=== PATIENT | male | born 1965 | race Caucasian/White ===

== ENCOUNTER 2018-08-30 15:48 | Emergency (ER) | payer OTHER ==
--- NOTE | 2018-08-30 17:35 | ER Document Report ---
ED Medical Screen (RME) - General Chief Complaint: Back Pain Stated Complaint: SIDE PAIN Time Seen by Provider: 08/30/18 17:33 Mode of Arrival: Ambulatory Information source: Patient Notes: 53-year-old male presented to ED for complaint of bilateral abdomen and back pain. He states it is been progressively getting worse over the last couple weeks worse today than it has been. States he has had diarrhea for 2 days and nausea today. He states he has had diverticulitis a couple years ago and this feels similar to that. He states he has a history of knee surgery for ligament repair he also had a colonoscopy with polyps removed. He is alert oriented respirations regular and unlabored speaking in full sentences walks with a even steady gait. 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 Abdomen is soft but tender to palpation bilaterally vital signs are stable. I have greeted and performed a rapid initial assessment of this patient. A comprehensive ED assessment and evaluation of the patient, analysis of test results and completion of medical decision making process will be conducted by an additional ED providers. TRAVEL OUTSIDE OF THE [place] IN LAST 30 DAYS: No - Related Data Allergies/Adverse Reactions: No Known Allergies Allergy (Unverified 08/30/18 15:51) Physical Exam - Vital signs Vitals: Temp Pulse Resp BP Pulse Ox 98.7 F 80 20 155/84 H 100 08/30/18 16:05 08/30/18 16:05 08/30/18 16:05 08/30/18 16:05 08/30/18 16:05 Course - Vital Signs Vital signs: Temp Pulse Resp BP Pulse Ox 98.7 F 80 20 155/84 H 100 08/30/18 16:05 08/30/18 16:05 08/30/18 16:05 08/30/18 16:05 08/30/18 16:05
[2018-08-30] MEDS ORDERED: ONDANSETRON HCL INJ/PF 4 MG/2 ML SDV IV ONE (17:36)
[2018-08-30] MEDS ORDERED: KETOROLAC TROMETHAMINE INJ/PF 30 MG/1 ML SDV IV ONE (17:36)
[2018-08-30 18:12] LABS: ABSOLUTE BASOPHILS # (AUTO) 0.1 10^3/uL (0.0-0.2); ABSOLUTE EOSINOPHILS # (AUTO) 0.2 10^3/uL (0.0-0.6); ABSOLUTE LYMPHOCYTES (AUTO) 2.1 10^3/uL (0.5-4.7); ABSOLUTE MONOCYTES (AUTO) 0.8 10^3/uL (0.1-1.4); ABSOLUTE NEUT (AUTO) 5.8 10^3/uL (1.7-8.2); BASOPHILS % (AUTO) 0.9 % (0-2); EOSINOPHILS % (AUTO) 1.8 % (0-6); HEMATOCRIT 46.1 % (37.9-51.0); HEMOGLOBIN 15.5 g/dL (13.5-17.0); LYMPHOCYTES % (AUTO) 23.4 % (13-45); MEAN CORPUSCULAR HEMOGLOBIN 28.6 pg (27.0-33.4); MEAN CORPUSCULAR HGB CONC 33.6 g/dL (32.0-36.0); MEAN CORPUSCULAR VOLUME 85 fl (80-97); MONOCYTES % (AUTO) 8.8 % (3-13); PLATELET COUNT 237 10^3/uL (150-450); RED BLOOD COUNT 5.43 10^6/uL (4.35-5.55); RED CELL DISTRIBUTION WIDTH 13.5 % (11.5-14.0); SEGMENTED NEUTROPHILS % (AUTO) 65.1 % (42-78); TOTAL CELLS COUNTED % (AUTO) 100 %; WHITE BLOOD COUNT 8.9 10^3/uL (4.0-10.5)
[2018-08-30 18:16] LABS: APPEARANCE,URINE CLEAR; BILIRUBIN,URINE NEGATIVE (NEGATIVE); COLOR,URINE YELLOW; GLUCOSE, URINE NEGATIVE (NEGATIVE); KETONES,URINE NEGATIVE (NEGATIVE); LEUKOCYTE ESTERASE,URINE NEGATIVE (NEGATIVE); NITRITE,URINE NEGATIVE (NEGATIVE); PROTEIN,URINE 100 mg/dL (NEGATIVE); URINE SPECIFIC GRAVITY 1.025; UROBILINOGEN,URINE NEGATIVE mg/dL (<2.0)
[2018-08-30 18:23] LABS: ALANINE AMINOTRANSFERASE 30 U/L (21-72); ALBUMIN 4.8 g/dL (3.5-5.0); ALKALINE PHOSPHATASE 57 U/L (38-126); ANION GAP 9 (5-19); ASPARTATE AMINO TRANSFERASE 46 U/L (17-59); BILIRUBIN,DIRECT 0.4 mg/dL (0.0-0.4); BILIRUBIN,TOTAL 0.7 mg/dL (0.2-1.3); BLOOD UREA NITROGEN 27 mg/dL (7-20); CALCIUM 9.7 mg/dL (8.4-10.2); CARBON DIOXIDE 24 mmol/L (22-30); CHLORIDE 112 mmol/L (98-107); GLUCOSE 78 mg/dL (75-110); POTASSIUM 5.4 mmol/L (3.6-5.0); SODIUM 145.1 mmol/L (137-145); TOTAL PROTEIN 8.2 g/dL (6.3-8.2)
--- NOTE | 2018-08-30 19:24 | ER Document Report ---
ED GI/ - General Chief Complaint: Back Pain Stated Complaint: SIDE PAIN Time Seen by Provider: 08/30/18 19:24 Mode of Arrival: Ambulatory Information source: Patient Notes: HISTORY OF PRESENT ILLNESS: Patient is a 53-year-old male with a past medical history of diverticulosis who presents with 3 weeks of bilateral lower abdominal pain. Location: Both lower flanks and lower quadrants Onset: Slowly 3 weeks ago Alleviation: None Provocation: Eating, movement Quality: Aching Radiation: "Around to the back" Severity: Moderate Timing: Constant History of abdominal surgery: No Associated symptoms: Nausea without vomiting, loose stools but no diarrhea, no hematemesis or hematochezia, no melena, no injuries to his knowledge Last bowel movement: Earlier and "looser than normal" REVIEW OF SYSTEMS: CONSTITUTIONAL : Denies fever or chills, no sweats. Denies recent illness. EENT: Denies eye, ear, throat, or mouth pain or symptoms. Denies nasal or sinus congestion. CARDIOVASCULAR: Denies chest pain. Denies swelling of the legs. RESPIRATORY: Denies cough, cold, or chest congestion. Denies shortness of breath or difficulty breathing. Denies wheezing. GASTROINTESTINAL: Positive for abdominal pain. Positive for nausea but no vomiting or diarrhea. Denies constipation. GENITOURINARY: Denies difficulty urinating, painful urination, burning, frequency, or blood in urine. FEMALE GENITOURINARY: Denies vaginal bleeding, abnormal or irregular periods. MUSCULOSKELETAL: Denies neck or back pain or joint pain or swelling. SKIN: Denies rash or skin lesions. HEMATOLOGIC : Denies easy bruising or bleeding. LYMPHATIC: Denies swollen, enlarged glands. NEUROLOGICAL: Denies altered mental status or loss of consciousness. Denies headache. Denies weakness or paralysis or loss of use of either side. Denies problems with gait or speech. Denies sensory or motor loss. PSYCHIATRIC: Denies anxiety or stress or depression. All other systems reviewed and negative. PHYSICAL EXAMINATION: GENERAL: Well-appearing, well-nourished and in no acute distress. HEAD: Atraumatic, normocephalic. No scalp deformity, depression, or crepitance. EYES: Pupils are 3 mm and equal/round/reactive to light, extraocular movements intact, sclera anicteric, conjunctiva are normal. ENT: Nares patent bilaterally, oropharynx. Moist mucous membranes. No tonsil hypertrophy. NECK: Normal range of motion, supple without lymphadenopathy. LUNGS: Breath sounds present, equal, and clear to auscultation bilaterally. No wheezes, rales, or rhonchi. HEART: Regular rate and rhythm without murmurs, rubs, or gallops. 2+ peripheral pulses. Normal capillary refill. ABDOMEN: Soft and nondistended, mild bilateral lower quadrant tenderness, no CVA tenderness. Normoactive bowel sounds. No guarding, no rebound. No masses appreciated. BACK: Normal contour, no midline tenderness. Rectal exam deferred. GENITAL/PELVIC: Deferred. EXTREMITIES: Normal range of motion, no pitting or edema. No cyanosis. NEUROLOGICAL: No focal neurological deficits. Moves all extremities spontaneously and on command. PSYCH: Normal mood, normal affect. No suicidal thoughts/ideations. No homocidal thoughts/ideations. No hallucinations. SKIN: Warm, dry, normal turgor, no rashes or lesions noted. ASSESSMENT AND PLAN: This patient is a 53-year-old male who presents with abdominal pain similar to his episodes of diverticulosis in the past. 1. Will obtain labs, urine, and CT scan of the abdomen/pelvis. 2. Will give IV fluids as well as morphine and Zofran. TRAVEL OUTSIDE OF THE [place] IN LAST 30 DAYS: No - Related Data Allergies/Adverse Reactions: No Known Allergies Allergy (Unverified 08/30/18 15:51) Past Medical History - General Information source: Patient - Social History Smoking Status: Never Smoker Chew tobacco use (# tins/day): No Frequency of alcohol use: None Drug Abuse: None Lives with: Family Family History: Reviewed & Not Pertinent Patient has suicidal ideation: No Patient has homicidal ideation: No - Past Medical History Cardiac Medical History: Reports: None Pulmonary Medical History: Reports: None EENT Medical History: Reports: None Neurological Medical History: Reports: None Endocrine Medical History: Reports: None Renal/ Medical History: Reports: None. Denies: Hx Peritoneal Dialysis Malignancy Medical History: Reports None GI Medical History: Reports: Hx Diverticulitis Musculoskeletal Medical History: Reports None Skin Medical History: Reports None Psychiatric Medical History: Reports: None Traumatic Medical History: Reports: None Infectious Medical History: Reports: None Surgical Hx: Negative Past Surgical History: Reports: None - Immunizations Immunizations up to date: Yes Hx Diphtheria, Pertussis, Tetanus Vaccination: Yes Physical Exam - Vital signs Vitals: Temp Pulse Resp BP Pulse Ox 98.7 F 80 20 155/84 H 100 08/30/18 16:05 08/30/18 16:05 08/30/18 16:05 08/30/18 16:05 08/30/18 16:05 Course - Re-evaluation Re-evalutation: 08/30/18 22:55 Labs showed normal white blood cell count. CT scan consistent with likely diverticulosis with possible early diverticulitis, no evidence of intra-abdominal abscess. Patient was given oral Cipro and Flagyl, has passed his oral challenge. He will be discharged home with return precautions and follow-up with both his primary physician and his information security officer. Patient reports both understanding and agreeing with the plan. - Vital Signs Vital signs: Temp Pulse Resp BP Pulse Ox 98.7 F 80 20 155/84 H 100 08/30/18 16:05 08/30/18 16:05 08/30/18 16:05 08/30/18 16:05 08/30/18 16:05 - Laboratory Result Diagrams: 08/30/18 17:57 08/30/18 17:57 Laboratory results interpreted by me: 08/30/18 08/30/18 17:57 17:57 Sodium 145.1 H Potassium 5.4 H Chloride 112 H BUN 27 H Creatinine 1.32 H Est GFR (Non-Af Amer) 57 L Urine Protein 100 H Urine Ascorbic Acid 40 H - Diagnostic Test Radiology reviewed: Image reviewed, Reports reviewed Discharge - Discharge Clinical Impression: Diverticulitis Condition: Good Disposition: HOME, SELF-CARE Instructions: Diverticulitis ([facility]) Additional Instructions: You have been evaluated in the Emergency Department for abdominal pain that is being caused by diverticulitis. Please follow-up with your primary physician or your information security officer as instructed in 1-2 weeks to be rechecked. Please take your prescribed medications as instructed. Return to the Emergency Department if you experience worsening pain, high fevers, see blood in your stools, or any other concerning symptoms. Prescriptions: Ciprofloxacin HCl [Cipro 500 mg Tablet] 500 mg PO BID #14 tablet Hydrocodone/Acetaminophen [[place] 5-325 mg Tablet] 1 tab PO Q6H PRN #20 tablet PRN Reason: For Pain Metronidazole [Flagyl 500 mg Tablet] 500 mg PO BID #14 tablet Ondansetron [Zofran Odt 4 mg Tablet] 1 tab PO Q8H PRN #30 tab.rapdis PRN Reason: For Nausea/Vomiting Print Language: Com[place]an
--- NOTE | 2018-08-30 20:43 | RADIOLOGY REPORT (SQ) ---
EXAM DESCRIPTION: CT ABDOMEN PELVIS WITH IV CONTRAST COMPLETED DATE/TME: 08/30/2018 17:35 CLINICAL HISTORY: 53 years, Male, Abdominal pain worse on the left history of divert COMPARISON: None. TECHNIQUE: 399 Images stored on PACS. All CT scanners at this facility use dose modulation, iterative reconstruction, and/or weight based dosing when appropriate to reduce radiation dose to as low as reasonably achievable (ALARA). [facility]: Dose Right [facility]: CareDose [facility]: Dose Right [facility]: Teradose 4D [facility]: [employer] LIMITATIONS: None. FINDINGS: Limited evaluation of the lung bases is unremarkable. Osseous structures are grossly intact. Probable fatty infiltrative change to the liver. The spleen, adrenal glands, pancreas, gallbladder are unremarkable. Horseshoe type kidney incidentally noted. Kidneys are otherwise unremarkable. Normal appendix. No evidence for bowel obstruction. Subjective urinary bladder wall thickening. Correlate with urinalysis. Prostate is mildly enlarged. Multiple calcifications of the prostate. Correlate with PSA levels. Multiple sigmoid and descending colon diverticuli. Some equivocal surrounding inflammation of the sigmoid colon may reflect minor diverticulitis. No abscess, free air, or free fluid. IMPRESSION: Descending/sigmoid diverticulosis with probable mild diverticulitis. No abscess, free air, or free fluid. The prostate appears enlarged. Correlate with PSA levels. Subjective urinary bladder wall thickening. Horseshoe type kidney. Fatty infiltrative change to the liver TECHNICAL DOCUMENTATION: Quality ID # 436: Final reports with documentation of one or more dose reduction techniques (e.g., Automated exposure control, adjustment of the mA and/or kV according to patient size, use of iterative reconstruction technique) copyright 2011 [employer]- All Rights Reserved
[2018-08-30] MEDS ORDERED: METOCLOPRAMIDE HCL INJ/PF 10 MG/2 ML SDV IV ONE (21:05)
[2018-08-30] MEDS ORDERED: MORPHINE SULFATE 10 MG/ML INJ IV ONE (21:05)
[2018-08-30] MEDS ORDERED: METRONIDAZOLE 500 MG TABLET PO ONE (21:38)
[2018-08-30] MEDS ORDERED: CIPROFLOXACIN HCL 500 MG TABLET PO ONE (21:38)
[2018-08-30 23:13] VITALS: BP 148/82
== END 2018-08-30 23:14 | disposition home or self-care (01) ==
LOC: ER 15:48
DX: K57.92 Diverticulitis of intestine, part unspecified, without perforation or abscess without bleeding (principal); M54.9 Dorsalgia, unspecified; R11.0 Nausea; R10.30 Lower abdominal pain, unspecified
CPT/HCPCS: 99284; 96374; 96375; 36415; 87086; 85025; 80053; 81001; 74177; J1885; J2765; J2270; J2405

== ENCOUNTER 2020-05-21 10:00 | Emergency (ER) | payer MEDICAID, OTHER ==
--- NOTE | 2020-05-21 10:19 | ER Document Report ---
ED Medical Screen (RME) - General Chief Complaint: Back Pain Stated Complaint: FELL - BACK/SIDE PAIN Time Seen by Provider: 05/21/20 10:15 Notes: Patient states that a dog ran past and he jumped over the leash and fell landing back on his back. Patient states initially did not have significant pain but has gradually had worsening pain to the right thoracic back and flank area. Patient states that he has pain with urination. Patient states that he does have some difficulty with deep inspiration. Patient reports only history of diverticulitis. I have greeted and performed a rapid initial assessment of this patient. A comprehensive ED assessment and evaluation of the patient, analysis of test results and completion of the medical decision making process will be conducted by additional ED providers. TRAVEL OUTSIDE OF THE [place] IN LAST 30 DAYS: No - Related Data Allergies/Adverse Reactions: No Known Allergies Allergy (Unverified 08/30/18 15:51) Home Medications: Allergy Medication PRN Past Medical History - Social History Chew tobacco use (# tins/day): No Frequency of alcohol use: Occasional Drug Abuse: None Renal/ Medical History: Denies: Hx Peritoneal Dialysis GI Medical History: Reports: Hx Diverticulitis Past Surgical History: Reports: Hx Orthopedic Surgery - right knee - Immunizations Immunizations up to date: Yes Hx Diphtheria, Pertussis, Tetanus Vaccination: Yes Physical Exam - Vital signs Vitals: Temp Pulse Resp BP Pulse Ox 98.5 F 74 20 166/75 H 100 05/21/20 10:12 05/21/20 10:12 05/21/20 10:12 05/21/20 10:12 05/21/20 10:12 - General General appearance: Alert Notes: Faint ecchymosis to right flank area Course - Vital Signs Vital signs: Temp Pulse Resp BP Pulse Ox 98.5 F 74 20 166/75 H 100 05/21/20 10:12 05/21/20 10:12 05/21/20 10:12 05/21/20 10:12 05/21/20 10:12
[2020-05-21] MEDS ORDERED: HYDROCODONE/ACETAMINOPHEN 5-325 MG TABLET PO ONE (10:20)
--- NOTE | 2020-05-21 10:58 | RADIOLOGY REPORT (SQ) ---
EXAM DESCRIPTION: CHEST 2 VIEWS IMAGES COMPLETED DATE/TIME: 05/21/2020 10:45 am REASON FOR STUDY: fall, back pain COMPARISON: None. EXAM PARAMETERS: NUMBER OF VIEWS: two views TECHNIQUE: Digital Frontal and Lateral radiographic views of the chest acquired. RADIATION DOSE: NA LIMITATIONS: none FINDINGS: LUNGS AND PLEURA: No opacities, masses or pneumothorax. No pleural effusion. MEDIASTINUM AND HILAR STRUCTURES: No masses or contour abnormalities. HEART AND VASCULAR STRUCTURES: Heart normal size. No evidence for failure. BONES: No acute findings. HARDWARE: None in the chest. OTHER: No other significant finding. IMPRESSION: NO ACUTE RADIOGRAPHIC FINDING IN THE CHEST. TECHNICAL DOCUMENTATION: JOB ID: [id number] 2010 [employer]- All Rights Reserved Reading location - IP/workstation name: [email or web address]
[2020-05-21 11:47] LABS: ABSOLUTE EOSINOPHILS # (AUTO) 0.1 10^3/uL (0.0-0.6); ABSOLUTE LYMPHOCYTES (AUTO) 1.3 10^3/uL (0.5-4.7); ABSOLUTE MONOCYTES (AUTO) 0.6 10^3/uL (0.1-1.4); ABSOLUTE NEUT (AUTO) 4.6 10^3/uL (1.7-8.2); BASOPHILS % (AUTO) 0.7 % (0-2); EOSINOPHILS % (AUTO) 1.6 % (0-6); HEMATOCRIT 44.5 % (37.9-51.0); HEMOGLOBIN 15.3 g/dL (13.5-17.0); LYMPHOCYTES % (AUTO) 19.1 % (13-45); MEAN CORPUSCULAR HEMOGLOBIN 29.2 pg (27.0-33.4); MEAN CORPUSCULAR HGB CONC 34.4 g/dL (32.0-36.0); MEAN CORPUSCULAR VOLUME 85 fl (80-97); MONOCYTES % (AUTO) 9.7 % (3-13); PLATELET COUNT 219 10^3/uL (150-450); RED BLOOD COUNT 5.23 10^6/uL (4.35-5.55); RED CELL DISTRIBUTION WIDTH 13.4 % (11.5-14.0); SEGMENTED NEUTROPHILS % (AUTO) 68.9 % (42-78); TOTAL CELLS COUNTED % (AUTO) 100 %; WHITE BLOOD COUNT 6.7 10^3/uL (4.0-10.5)
[2020-05-21 11:51] LABS: APPEARANCE,URINE CLEAR; BILIRUBIN,URINE NEGATIVE (NEGATIVE); COLOR,URINE YELLOW; GLUCOSE, URINE NEGATIVE (NEGATIVE); KETONES,URINE NEGATIVE (NEGATIVE); LEUKOCYTE ESTERASE,URINE NEGATIVE (NEGATIVE); NITRITE,URINE NEGATIVE (NEGATIVE); PROTEIN,URINE 100 mg/dL (NEGATIVE); URINE SPECIFIC GRAVITY 1.019; UROBILINOGEN,URINE NEGATIVE mg/dL (<2.0)
[2020-05-21 12:12] LABS: ALBUMIN 4.4 g/dL (3.5-5.0); ALKALINE PHOSPHATASE 64 U/L (38-126); ANION GAP 8 (5-19); ASPARTATE AMINO TRANSFERASE 31 U/L (17-59); BILIRUBIN,DIRECT 0.2 mg/dL (0.0-0.4); BILIRUBIN,TOTAL 0.7 mg/dL (0.2-1.3); BLOOD UREA NITROGEN 21 mg/dL (7-20); CALCIUM 9.5 mg/dL (8.4-10.2); CARBON DIOXIDE 26 mmol/L (22-30); CHLORIDE 104 mmol/L (98-107); GLUCOSE 116 mg/dL (75-110); POTASSIUM 5.2 mmol/L (3.6-5.0); TOTAL PROTEIN 7.4 g/dL (6.3-8.2)
[2020-05-21] MEDS ORDERED: MORPHINE SULFATE 10 MG/ML INJ IV ONE (12:35)
--- NOTE | 2020-05-21 12:45 | ER Document Report ---
ED General - General Chief Complaint: Back Pain Stated Complaint: FELL - BACK/SIDE PAIN Time Seen by Provider: 05/21/20 10:15 TRAVEL OUTSIDE OF THE [place] IN LAST 30 DAYS: No - HPI Notes: Chief complaint: Injury with right rib pain and right upper quadrant abdominal pain History of present illness: Patient states he sustained injury to his back, ribs and upper quadrant of abdomen when he fell flat on his back last night. Patient states that a dog ran past and he jumped over the leash and he fell landing back on his back. Patient states initially did not have significant pain but has gradually had worsening pain to the right thoracic back and flank area. Patient states that he has pain with urination. Patient states that he does have some difficulty with deep inspiration. No prior surgery. Past medical history remarkable only for past treatment for diverticulitis. No regular medications. No known allergies. Non-smoker. Social alcohol. - Related Data Allergies/Adverse Reactions: No Known Allergies Allergy (Verified 05/21/20 10:34) Home Medications: Allergy Medication PRN Past Medical History - General Information source: Patient - Social History Smoking Status: Never Smoker Chew tobacco use (# tins/day): No Frequency of alcohol use: Occasional Drug Abuse: None Family History: Reviewed & Not Pertinent Renal/ Medical History: Denies: Hx Peritoneal Dialysis GI Medical History: Reports: Hx Diverticulitis Past Surgical History: Reports: Hx Orthopedic Surgery - right knee - Immunizations Immunizations up to date: Yes Hx Diphtheria, Pertussis, Tetanus Vaccination: Yes Review of Systems - Review of Systems Notes: Constitutional: Negative for fever. HENT: Negative for sore throat. Eyes: Negative for visual changes. Cardiovascular: Negative for chest pain. Respiratory: As per HPI. Gastrointestinal: Negative for abdominal pain, vomiting or diarrhea. Genitourinary: As per HPI. Musculoskeletal: As per HPI. Skin: Negative for rash. Neurological: Negative for headaches, weakness or numbness. 10 point ROS negative except as marked above and in HPI. Physical Exam - Vital signs Vitals: Temp Pulse Resp BP Pulse Ox 98.5 F 74 20 166/75 H 100 05/21/20 10:12 05/21/20 10:12 05/21/20 10:12 05/21/20 10:12 05/21/20 10:12 - Notes Notes: GENERAL: Well-developed well-nourished middle-age male appearing in severe discomfort when he moves, takes a deep breath or tries to stand. He complains of pain in right flank area and right upper quadrant abdomen. SKIN: Good turgor no rashes. HEAD: Normocephalic atraumatic. EYES: PERRLA. EOMI. Conjunctivae and sclerae clear. EARS: CANALS AND TMS CLEAR. NOSE: CLEAR. MOUTH: Moist mucosa. Good dentition. No stridor or edema. No drooling. NECK: Supple. No masses or thyromegaly. No adenopathy. Carotids 2+ without bruits. No JVD. BACK: Symmetrical without tenderness. CHEST: Exquisitely tender over right inferior posterior lateral rib cage. No crepitus or step-off. No visible ecchymoses. Respirations unlabored. Breath sounds clear and symmetrical. HEART: Regular rhythm. No murmur gallop or rub. ABDOMEN: Moderately tender right upper quadrant soft without masses, orga nomegaly or rebound. Bowel sounds normally active. No bruits. GENITALIA: Deferred. EXTREMITIES: No edema. No calf tenderness. Cap refill less than 1.5 seconds. Dorsalis pedis and posterior tibial pulses 3+ and symmetrical. NEUROLOGICAL: GCS 15. Alert and oriented x3. Fluent speech. Cranial nerves II through XII intact. Sensorimotor and cerebellar normal. Normal tone. PSYCHIATRIC: Appropriate affect. Course - Re-evaluation Re-evalutation: 05/21/20 14:14 Clinical findings are most consistent with injury to the right side rib cage. Plain films of the chest reported as normal. Patient is exquisitely tender and also was noted to have moderate upper quadrant abdominal tenderness on the right. For this reason we went ahead and got a CT of the chest abdomen pelvis with IV contrast. No other injuries were identified on this study. Patient is noted to have a horseshoe kidney. Patient initially received some oral Percocet without significant relief of his pain. We thereafter gave him a dose of IV morphine. His pain is much more tolerable at this point. I reviewed his imaging findings and also reassured him that his CBC, comprehensive metabolic profile and urinalysis are unremarkable. Feel he stable for outpatient management. Will refer him to primary care for follow-up. Findings, clinical impression and plan of treatment have been discussed with patient/family. Understanding of current findings and recommendations has been acknowledged by them and there is agreement regarding disposition and follow-up. - Vital Signs Vital signs: Temp Pulse Resp BP Pulse Ox 98.5 F 74 20 166/75 H 99 05/21/20 10:12 05/21/20 10:12 05/21/20 10:12 05/21/20 10:12 05/21/20 11:22 - Laboratory Result Diagrams: 05/21/20 11:30 05/21/20 11:30 Laboratory results interpreted by me: 05/21/20 05/21/20 11:30 11:30 Potassium 5.2 H BUN 21 H Creatinine 1.28 H Est GFR (MDRD) Non-Af 59 L Glucose 116 H Urine Protein 100 H Urine Blood SMALL H - Diagnostic Test Radiology reviewed: Reports reviewed - NormalPer radiologist: Normal chest x- ray. CT chest with IV contrast. CT abdomen/pelvis with IV contrast remarkable for presence of a horseshoe kidney. Discharge - Discharge Clinical Impression: Traumatic injury of rib Condition: Stable Disposition: HOME, SELF-CARE Instructions: Ice Packs ([facility]) Additional Instructions: Rib Injuries and Fractures You have been diagnosed as having either bruised or broken ribs. These two injuries are treated in the same way. It will usually take four to six weeks for these injured ribs to heal. Sometimes, rib belts or anesthetic injections of the chest wall help reduce the pain. If you are using a rib belt, you should cough or take a deep breath at least every hour or two to prevent lung complications. You should not engage in any strenuous physical activity until released by your physician. The usual rule is "if it hurts, don't do it." Rib fractures can lead to serious lung complications including lung collapse, hemorrhage, and pneumonia. You should call the physician or return at once if any of the following occur: (1) Fever or chills. (2) Persistent cough, coughing up blood, or shortness of breath. (3) Increasing pain. (4) Weakness, lightheadedness, or fainting. Prescription pain medication has been called into your pharmacy. Name/telephone number for follow-up physician/clinic provided for you. Return here as needed for new or worsening symptoms: Pain that is worsening or unimproved Uncontrolled vomiting High fever or shaking chills Overall worsening Prescriptions: Oxycodone HCl/Acetaminophen [Percocet 5-325 mg Tablet] 1 - 2 tab PO Q4H PRN #25 tablet PRN Reason: Referrals: [facility] [Provider Group] - Follow up as needed
--- NOTE | 2020-05-21 13:32 | RADIOLOGY REPORT (SQ) ---
EXAM DESCRIPTION: CT CHEST WITH IMAGES COMPLETED DATE/TIME: 05/21/2020 1:17 pm REASON FOR STUDY: trauma COMPARISON: Chest x-ray done earlier the same day. TECHNIQUE: CT scan of the chest performed using helical scanning technique with dynamic intravenous contrast injection. Images reviewed with lung, soft tissue and bone windows. Reconstructed coronal and sagittal MPR and MIP images reviewed. All images stored on PACS. All CT scanners at this facility use dose modulation, iterative reconstruction, and/or weight based d osing when appropriate to reduce radiation dose to as low as reasonably achievable (ALARA). [facility]: Dose Right [facility]: CareDose [facility]: Dose Right [facility]: Teradose 4D [facility]: CDB [employer] CONTRAST TYPE AND DOSE: 86 mL Omnipaque 350- low osmolar. RENAL FUNCTION: BUN 21, creatinine 1.28 RADIATION DOSE: CT Rad equipment meets quality standard of care and radiation dose reduction techniq ues were employed. CTDIvol: 8.5 - 12.5 mGy. DLP: 1538 mGy-cm. . LIMITATIONS: None. FINDINGS: LUNGS AND PLEURA: No opacities, nodules, masses. No pneumothorax. No effusions. HILAR AND MEDIASTINAL STRUCTURES: No identified masses or abnormal nodes. HEART AND VASCULAR STRUCTURES: No aneurysm or dissection. No central pulmonary emboli. No pericardi al effusion. Numerous collateral vessels demonstrated overlying the left chest wall and back consist ent with at least central venous narrowing of some type. HARDWARE: None in the chest. UPPER ABDOMEN: No significant findings. Limited exam. THYROID AND OTHER SOFT TISSUES: No masses. No adenopathy. BONES: No acute findings. There is a single old left-sided healed rib fracture. OTHER: No other significant finding. IMPRESSION: 1. No acute posttraumatic changes in the chest. 2. Numerous collateral vessels overlying the a left hemithorax consistent with central venous narrow ing. TECHNICAL DOCUMENTATION: JOB ID: [id number] Quality ID # [id number]: Final reports with documentation of one or more dose reduction techniques (e.g., Au tomated exposure control, adjustment of the mA and/or kV according to patient size, use of iterative reconstruction technique) 2010 [employer]- All Rights Reserved Reading location - IP/workstation name: [email or web address]
--- NOTE | 2020-05-21 13:37 | RADIOLOGY REPORT (SQ) ---
EXAM DESCRIPTION: CT ABD/PELVIS WITH IV ONLY IMAGES COMPLETED DATE/TIME: 05/21/2020 1:17 pm REASON FOR STUDY: trauma COMPARISON: None. TECHNIQUE: CT scan of the abdomen and pelvis performed using helical scanning technique with dynamic intravenous contrast injection. No oral contrast. Images reviewed with lung, soft tissue, and bone windows. Reconstructed coronal and sagittal MPR images reviewed. Delayed images for evaluation of the urinary system also acquired. All images stored on PACS. All CT scanners at this facility use dose modulation, iterative reconstruction, and/or weight based d osing when appropriate to reduce radiation dose to as low as reasonably achievable (ALARA). [facility]: Dose Right [facility]: CareDose [facility]: Dose Right [facility]: Teradose 4D [facility]: PasswordBank CONTRAST TYPE AND DOSE: contrast/concentration: Isovue 350.00 mmol/ml; Total Contrast Delivered: 86. 0 ml; Total Saline Delivered: 45.0 ml RENAL FUNCTION: BUN 21, creatinine 1.28 RADIATION DOSE: . LIMITATIONS: None. FINDINGS: LOWER CHEST: No significant findings. No nodules or infiltrates. LIVER: Normal size. No masses. No dilated ducts. SPLEEN: Normal size. No focal lesions. PANCREAS: No masses. No significant calcifications. No adjacent inflammation or peripancreatic fluid collections. Pancreatic duct not dilated. GALLBLADDER: No identified stones by CT criteria. No inflammatory changes to suggest cholecystitis. ADRENAL GLANDS: No significant masses or asymmetry. KIDNEYS: Horseshoe kidney. Normal enhancement excretion. No focal masses. AORTA AND VESSELS: No aneurysm. No dissection. Renal arteries, SMA, celiac without stenosis. RETROPERITONEUM: No retroperitoneal adenopathy, hemorrhage or masses. BOWEL AND PERITONEAL CAVITY: No masses or inflammatory changes. No free fluid or peritoneal masses. Scattered diverticuli. No acute diverticulitis. APPENDIX: Normal. PELVIS: No mass. No free fluid. Normal bladder. ABDOMINAL WALL: No masses. No hernias. BONES: No significant or acute findings. OTHER: No other significant finding. IMPRESSION: Horseshoe kidney is again noted. No acute findings in the abdomen or pelvis. TECHNICAL DOCUMENTATION: JOB ID: [id number] Quality ID # [id number]: Final reports with documentation of one or more dose reduction techniques (e.g., Au tomated exposure control, adjustment of the mA and/or kV according to patient size, use of iterative reconstruction technique) 2010 [employer]- All Rights Reserved Reading location - IP/workstation name: [email or web address]
[2020-05-21 14:47] VITALS: BP 128/82
== END 2020-05-21 14:30 | disposition home or self-care (01) ==
LOC: ER 10:00
DX: S29.8XXA Other specified injuries of thorax, initial encounter (principal); R07.81 Pleurodynia; M54.9 Dorsalgia, unspecified; R10.10 Upper abdominal pain, unspecified; M54.6 Pain in thoracic spine; R10.9 Unspecified abdominal pain; R30.9 Painful micturition, unspecified; W19.XXXA Unspecified fall, initial encounter
CPT/HCPCS: 99285; 96374; 36415; 85025; 80053; 81001; 71046; 71260; 74177; J2270